=== PATIENT | female | born 1955 ===

== ENCOUNTER 2018-07-07 18:46 | Inpatient (IN) | payer BC ==
[2018-07-07 19:33] LABS: #Lymphocytes 1.3 thou/uL (1.20-3.40); #Monocytes 0.8 thou/uL (0.11-0.59); #Neutrophils 6.9 thou/uL (1.40-6.50); %Basophils 0.1 % (0.0-1.0); %Eosinophils 0.5 % (0.0-10.0); %Lymphocytes 14.3 % (21.0-51.0); %Monocytes 8.3 % (0.0-10.0); %Neutrophils 76.8 % (42.0-75.0); Hemoglobin 10.2 g/dL (12.0-16.0); Mean Corpuscular HGB CONC 31.9 g/dL (32.0-36.0); Mean Corpuscular Hemoglobin 34.3 pg (27.0-31.0); Mean Platelet Volume 8.6 fL (7.4-10.4); Platelet Count 171 thou/uL (130-400); Red Blood Cell (RBC) Count 2.96 mill/uL (4.20-5.40)
[2018-07-07 19:40] LABS: INR-International Normal Ratio 1.2; PTT 29.1 SEC (22.9-36.1)
[2018-07-07 19:47] LABS: ALT (SGPT) 19 U/L (8-55); AST (SGOT) 43 U/L (5-34); Albumin 3.4 g/dL (3.5-5.0); Alkaline Phosphatase 115 U/L (40-150); Anion Gap 14 mmol/L (10-20); BUN (Urea Nitrogen) 28 mg/dL (9.8-20.1); Bilirubin, Total 2.8 mg/dL (0.2-1.2); Calc. Creatinine Clearance 0 mL/min (70-130); Calcium 9.1 mg/dL (7.8-10.44); Carbon Dioxide 21 mmol/L (22-29); Chloride 105 mmol/L (98-107); Estimated GFR-MDRD 39; Globulin 3.4 g/dL (2.4-3.5); Glucose 95 mg/dL (70-105); Potassium 4.3 mmol/L (3.5-5.1); Protein, Total 6.8 g/dL (6.0-8.3); Sodium 136 mmol/L (136-145)
[2018-07-07 19:51] LABS: CKMB 2.1 ng/mL (0-6.6); Troponin I 0.205 ng/mL (< 0.028)
[2018-07-07 19:55] LABS: Bilirubin Small (Negative); Blood, Urine Large (Negative); Clarity CLOUDY (Clear); Glucose, Urine (Dipstick) Negative (Negative); Leukocyte Small (Negative); Nitrite Negative (Negative); Protein, Urine (Dipstick) 30 mg/dL (Neg-Trace); Specific Gravity, Urine 1.017 (1.002-1.036)
[2018-07-07 19:57] LABS: Bacteria/HPF None Seen HPF (None Seen); Hyaline Casts/LPF 0-3 HYALINE CAST LPF (0-3 Hyaline); Pathc Cast-AUWi Flag 0.43 (0-2.49); RBC/HPF 21-50 HPF (0-3); Squamous Epithelial None Seen HPF (0-3); WBC/HPF 0-3 HPF (0-3)
[2018-07-07] MEDS ORDERED: Lidocaine 1% w/Epinephrine 1:100K 20 ML VIAL ONE (20:04)
--- NOTE | 2018-07-07 20:06 | RAD ---
PORTABLE AP CHEST X-RAY: 07/07/18 HISTORY: Dyspnea. Liver mass and ascites. FINDINGS: The cardiac silhouette and pulmonary vasculature are within normal limits. There is elevation of the right hemidiaphragm. Lungs are otherwise clear. degenerative changes are seen in the spine. IMPRESSION: 1. No acute cardiopulmonary process. 2. Elevation right hemidiaphragm. POS: [facility]
[2018-07-07] MEDS ORDERED: Meropenem 2 GM in Sodium Chloride 0.9% 100 ML IVPB SCH (21:30)
[2018-07-07] MEDS ORDERED: Ondansetron PF 4 MG/2 ML Vial IVP PRN (23:25)
[2018-07-07] MEDS ORDERED: Acetaminophen 325 MG TAB PO PRN (23:25)
[2018-07-07] MEDS ORDERED: Diabetic Tussin 200 MG/10 ML UDCUP PO PRN (23:25)
[2018-07-07] MEDS ORDERED: Eucerin (Mineral Oil/Petrolatum,White) 30 gm Jar TOP PRN (23:25)
[2018-07-07] MEDS ORDERED: Calcium Carbonate 500 MG ChewTAB PO PRN (23:25)
[2018-07-07] MEDS ORDERED: Artificial Tears 18 DROP/0.9 ML EA EYE PRN (23:25)
[2018-07-07] MEDS ORDERED: Ondansetron ODT 4 MG TAB PO PRN (23:25)
[2018-07-07] MEDS ORDERED: hydrALAZINE 20 MG/ML VIAL SLOW IVP PRN (23:25)
[2018-07-07] MEDS ORDERED: Bisacodyl 10 MG SUPP PR PRN (23:25)
[2018-07-07] MEDS ORDERED: Cepastat Lozenges 1 LOZ PO PRN (23:25)
[2018-07-07] MEDS ORDERED: Loperamide HCl 2 MG CAP PO PRN (23:25)
[2018-07-07] MEDS ORDERED: Sodium Chloride 0.65% Nasal 44 ML BOT EA NARE PRN (23:25)
[2018-07-07] MEDS ORDERED: Bisacodyl 5 MG TAB PO PRN (23:25)
[2018-07-07] MEDS ORDERED: Loratadine 10 MG TAB PO PRN (23:25)
[2018-07-07] MEDS: HYDROcodone/Acetaminophen 5/325 mg Tablet PO PRN (23:41)
[2018-07-08] MEDS: cefTRIAXone\\ROCEPHIN 1 GM in Sodium Chloride 0.9% 100 ML IVPB SCH ×2 (00:55→23:31)
--- NOTE | 2018-07-08 02:13 | HP ---
DATE OF SERVICE: 07/07/2018 PRIMARY CARE PHYSICIAN: Dr. Marleen Charles. PRIMARY PIANO TUNER: Dr. Adrian Ramsey. REASON FOR ADMISSION: Abdominal distention. HISTORY OF PRESENT ILLNESS: A 62-year-old female who reports that she has a history of fatty liver. She does not know whether she has cirrhosis of liver or not. She went to see primary care physician today for abdominal distention, which is going on for last 2-3 weeks. The patient was initially thi nking that it was related with gas. She was trying all different kind of [id number] treatment for gas, which was not helping, but her abdominal distention was getting worse and that is why she sa w her primary care physician today. Her primary care physician advised to go to emergency room for e valuation. This patient also follows Dr. Ramsey as an outpatient basis. Patient reports that she saw Dr. Ramsey couple of times since May. She had investigation done on an outpatient basis, but p atient does not have any real detail clue about diagnosis other than fatty liver. The patient lives by herself, not drinking alcohol. She does not have any previous history of hepatitis. Patient also has chronic kidney failure and she is following Dr. Ryan as an outpatient basis. Patient reports that blood bank order control clerk was trying to do CT or MRI, but because of her kidney problem, they have not done so far. When this patient came to emergency room, she was having tense ascites, she was having abdominal pain . She was febrile with temperature 101. She had ultrasound-guided paracentesis in the emergency lonnie m and fluid was sent for culture and analysis. There was concern of spontaneous bacterial peritoniti s. The patient was given meropenem and subsequently she was admitted to medical floor. She denies a ny chest pain, but she was feeling shortness of breath because of abdominal distention. She denies a ny PND. She does report orthopnea because of abdominal distention. She does report increasing bilat eral lower extremity pitting edema. She does report weight gain. Patient did not have any fever at home. She denies any Tylenol or Motrin in excess. She does report urinary tract infection symptoms with increased frequency and dysuria. REVIEW OF SYSTEMS: The following complete review of systems was negative, unless otherwise mentioned in the HPI or below: Constitutional: Weight loss or gain, ability to conduct usual activities. Sk in: Rash, itching. Eyes: Double vision, pain. ENT/Mouth: Nose bleeding, neck stiffness, pain, te nderness. Cardiovascular: Palpitations, dyspnea on exertion, orthopnea. Respiratory: Shortness of breath, wheezing, cough, hemoptysis, fever or night sweats. Gastrointestinal: Poor appetite, abdom inal pain, heartburn, nausea, vomiting, constipation, or diarrhea. Genitourinary: Urgency, frequenc y, dysuria, nocturia. Musculoskeletal: Pain, swelling. Neurologic/Psychiatric: Anxiety, depressio n. Allergy/Immunologic: Skin rash, bleeding tendency. Please see my HPI for pertinent positive and negative. All other review of systems reviewed and negative except as mentioned in the HPI. ALLERGIES: AMLODIPINE, BACTRIM, SULFA DRUGS. CURRENT HOME MEDICATIONS: Allopurinol 200 mg p.o. daily, vitamin D3 1000 unit p.o. daily, losartan 1 00 mg p.o. daily, venlafaxine 100 mg p.o. daily. PAST MEDICAL HISTORY: Hypertension, chronic kidney disease stage 3, ? cirrhosis, fatty liver, gout, ? liver mass, ? adenoma of colon. PAST SURGICAL HISTORY: Cholecystectomy. The patient had a history of EGD and colonoscopy done by gas troenterologist. PAST PSYCHIATRIC HISTORY: Anxiety and depression. SOCIAL HISTORY: Patient is . No history of tobacco, alcohol, or illicit drug abuse. She yuan es at home with family. FAMILY HISTORY: The patient denies any family history of coronary artery disease, stroke, or cancer. EMERGENCY ROOM COURSE: Patient is given meropenem 2 grams. PHYSICAL EXAMINATION: VITAL SIGNS: Currently, blood pressure 122/95, pulse 92, respiratory rate 22, temperature 101, satur ation 95% on room air, weight 95.3 kilograms. GENERAL: Patient is currently alert, awake, in no obvious acute distress. HEAD: Normocephalic, atraumatic. EYES: Pupils round, reactive to light. Extraocular muscle intact. Icterus noted. ENT: Oropharynx within normal limits. Moist mucous membranes. No oral lesion, no pharyngeal erythe ma, no exudate. NECK: Supple. No JVD, no thyromegaly, no carotid bruit, no jugular venous distention. LUNGS: Clear to auscultation. Air entry reduced at base. No rales, no wheezing, no accessory muscl es of respiration in use. CARDIAC: S1, S2 regular. No murmur elicited, no gallop, no rub. ABDOMEN: Ascites noted. No peritoneal sign. Vague discomfort noted. No organomegaly, no mass, no Page's sign, no epigastric tenderness. BACK: Unremarkable. No CVA tenderness. EXTREMITIES: Upper extremity: Passive movement of all joints are normal. Lower extremities: Bilat eral lower extremity pitting edema noted. Good distal pulsation. SKIN: No skin rash. HEMATOLOGICAL: No lymphadenopathy. NEUROLOGIC: No asterixis. Normal mental status. No focal neurological deficit noted. SIGNIFICANT LABORATORY AND DIAGNOSTIC DATA: Now EKG showing normal sinus rhythm, low voltage QRS com plex, no acute ischemic changes. Chest x-ray: Elevated right hemidiaphragm, no acute process. CBC: WBC 9.0, hemoglobin 10.2, MCV 107, and platelet 171. INR 1.2. BMP: Sodium 136, potassium 4.3, ch loride 105, BUN 28, creatinine 1.37, glucose 95. Lactic acid 1.9, calcium 9.1. LFT: Bilirubin 2.8, AST 43, ALT 19, alkaline phosphatase was 115, albumin 3.4, CK-MB 2.1, troponin 0.205. BNP 96.5. Ur inalysis: Blood large, leukocyte esterase small. ASSESSMENT AND PLAN: 1. New onset ascites. Patient has tense ascites on admission. She had paracentesis done and 3 lite rs of fluid removed in the emergency room. Fluid was sent for analysis. At this point, we will chec k fluid cytology, Gram stain and culture, protein, albumin, LDH and protein will be checked. The pat ient also has fever, so concerning for spontaneous bacterial peritonitis. We will start empirically Rocephin 1 gram q.24 hours and Levaquin 500 mg IV daily. Etiology of rapidly worsening ascites is un clear. She will need more investigation including ultrasound. Gastroenterology will be consulted an d further investigation will defer to them. This patient is following Dr. Ramsey as an outpatient bas is and I am suspecting that patient might have done all investigations done on an outpatient basis. Further investigation will defer to blood bank order control clerk. 2. ? liver mass and cirrhosis. If the patient does have diagnosis of cirrhosis, then suspecting non alcoholic steatohepatitis related cirrhosis. We will check alpha fetoprotein level. We will start L asix 20 mg IV b.i.d. and Aldactone 25 mg p.o. b.i.d. It is unclear whether this patient has any vari becki, but patient does have evidence of portal hypertension and that is why we will start Inderal, Cor robert 20 mg p.o. daily. We will check hepatitis profile and obtain right upper quadrant ultrasound fo r further evaluation. 3. Gout. We will continue allopurinol 200 mg p.o. daily. 4. Anxiety and depression. We will continue venlafaxine 100 mg p.o. daily. 5. Hypertension. We will continue losartan 100 mg p.o. daily. 6. Elevated troponin. We will repeat cardiac enzymes tomorrow. We are suspecting from demand ische jayjay. Patient does not have any chest pain, nonspecific EKG changes. 7. Microcytic anemia. We will start folic acid and vitamin B12 therapy. 8. Urinary tract infection. Patient has urinary tract infection symptoms. Patient is already on Ro cephin and Levaquin therapy. We will send urine culture. 9. Elevated right hemidiaphragm, chronic. 10. Deep venous thrombosis prophylaxis. Lovenox 40 mg subcu daily. 11. Gastrointestinal prophylaxis. Pepcid 20 mg p.o. daily. CODE STATUS: The patient is FULL CODE. Patient's is surrogate decision maker. Disposition plan based on clinical course. We will check ammonia level and routine labs again tomorr ow. Plan of care extensively discussed with the patient and her at bedside.
[2018-07-08 05:28] LABS: #Eosinphils 0.1 thou/uL (0.0-0.7); #Lymphocytes 1.6 thou/uL (1.20-3.40); #Monocytes 0.8 thou/uL (0.11-0.59); #Neutrophils 3.4 thou/uL (1.40-6.50); %Basophils 0.6 % (0.0-1.0); %Eosinophils 2.1 % (0.0-10.0); %Lymphocytes 26.4 % (21.0-51.0); %Neutrophils 56.9 % (42.0-75.0); Hemoglobin 8.5 g/dL (12.0-16.0); Mean Corpuscular HGB CONC 31.5 g/dL (32.0-36.0); Mean Corpuscular Hemoglobin 33.8 pg (27.0-31.0); Mean Platelet Volume 8.4 fL (7.4-10.4); Platelet Count 120 thou/uL (130-400); RBC Distribution Width 14.1 % (11.5-14.5); Red Blood Cell (RBC) Count 2.51 mill/uL (4.20-5.40)
[2018-07-08] MEDS: Furosemide 20 MG/2 ML VIAL SLOW IVP SCH ×2 (05:36→13:55)
[2018-07-08 05:53] LABS: ALT (SGPT) 14 U/L (8-55); AST (SGOT) 30 U/L (5-34); Albumin 2.8 g/dL (3.5-5.0); Alkaline Phosphatase 92 U/L (40-150); Anion Gap 10 mmol/L (10-20); BUN (Urea Nitrogen) 28 mg/dL (9.8-20.1); Bilirubin, Total 2.2 mg/dL (0.2-1.2); Calc. Creatinine Clearance 0 mL/min (70-130); Calcium 8.5 mg/dL (7.8-10.44); Carbon Dioxide 25 mmol/L (22-29); Chloride 105 mmol/L (98-107); Estimated GFR-MDRD 43; Globulin 2.7 g/dL (2.4-3.5); Glucose 92 mg/dL (70-105); Potassium 3.7 mmol/L (3.5-5.1); Protein, Total 5.5 g/dL (6.0-8.3); Sodium 136 mmol/L (136-145)
[2018-07-08 05:55] LABS: CKMB 1.7 ng/mL (0-6.6); Troponin I 0.177 ng/mL (< 0.028)
[2018-07-08 06:24] LABS: HBCM Index 0.07 S/CO (0-0.79); Hep A IgM AB Non-Reactive (NonReactive); Hep B Surf Ag Non-Reactive S/CO (NonReactive); Hep C IgG Ab Non-Reactive (NonReactive); Hep C Index 0.12 S/CO (0-0.79); Hepatitis B Core IGM Abs Non-Reactive (NonReactive)
--- NOTE | 2018-07-08 08:02 | ULT ---
RIGHT UPPER QUADRANT ULTRASOUND: INDICATION: History of ascites. COMPARISON: None. FINDINGS: There is severe cirrhotic morphology of the liver. There is a large solid mass involving the right h epatic lobe measuring 9.4 x 6.6 cm suspicious for a pelvic density. Appropriate hepatopetal flow is seen within the hepatic artery. There is hepatofugal flow within the vein. Edematous changes are se en within the pancreas. The gallbladder is surgically absent. The common bile duct is enlarged gigi uring 1.2 cm. The right kidney measures 10.3 x 4.5 x 4.1 cm without evidence of focal renal lesion o r hydronephrosis. There is moderate ascites. There is a moderate-sized right pleural effusion. IMPRESSION: 1. Cirrhotic morphology of the liver with hepatofugal flow within the portal vein. 2. Moderate ascites. 3. Large mass within the right hepatic lobe suspicious for hepatocellular carcinoma. 4. Moderate right pleural effusion. 5. Cholecystectomy. POS: [facility]
[2018-07-08] MEDS ORDERED: Enoxaparin Sodium 40 MG/0.4 ML SYRINGE SC SCH (09:00)
[2018-07-08] MEDS ORDERED: Nadolol 40 MG TAB PO SCH (09:00)
[2018-07-08] MEDS: Allopurinol 100 MG TAB PO SCH ×2 (09:02→09:03)
[2018-07-08] MEDS: Cyanocobalamin (Vitamin B-12) 1,000 MCG TAB PO SCH (09:04)
[2018-07-08] MEDS: Losartan 25 MG TAB PO SCH (09:04)
[2018-07-08] MEDS: Folic Acid 1 MG TAB PO SCH (09:04)
[2018-07-08] MEDS: Spironolactone 25 MG TAB PO SCH ×2 (09:04→18:10)
[2018-07-08] MEDS: Saccharomyces boulardii 250 MG CAP PO SCH (09:04)
[2018-07-08] MEDS: Famotidine 20 MG TAB PO SCH (09:04)
[2018-07-08] MEDS: Venlafaxine HCl 25 MG TAB PO SCH (09:24)
[2018-07-08] MEDS: Heparin 5,000 UNITS/ML VIAL SC SCH ×2 (09:24→19:49)
[2018-07-08] MEDS: HYDROcodone/Acetaminophen 5/325 mg Tablet PO PRN (09:31)
--- NOTE | 2018-07-08 15:04 | PDOC.PN ---
- Subjective Encounter Start Date: 07/08/18 Encounter Start Time: 11:15 Subjective: pt up in bed has some pain to his abdomen - Objective Resuscitation Status: Resuscitation Status FULL:Full Resuscitation Vital Signs & Weight: Vital Signs (12 hours) Temp Pulse Resp BP BP Pulse Ox 07/08/18 11:31 98 F 70 19 133/79 91 L 07/08/18 07:26 98.1 F 88 20 132/76 94 L 07/08/18 04:27 97.9 F 87 18 120/72 93 L Weight Admit Weight 210 lb Weight 210 lb I&O: 07/07/18 07/08/18 07/09/18 06:59 06:59 06:59 Output Total 200 Balance -200 Result Diagrams: 07/08/18 04:30 07/08/18 04:30 Additional Labs: Accuchecks 07/08/18 11:35 POC Glucose 121 H Phys Exam - Physical Examination Neck: no nodes, no JVD, supple, full ROM Respiratory: no wheezing, no rales, no rhonchi, wheezing present, clear to auscultation bilateral Cardiovascular: RRR, no significant murmur, no rub, gallop, irregular Gastrointestinal: soft, positive bowel sounds mild distention Dx/Plan (1) Cirrhosis of liver with ascites Code(s): K74.60 - UNSPECIFIED CIRRHOSIS OF LIVER; R18.8 - OTHER ASCITES Status : Acute (2) SBP (spontaneous bacterial peritonitis) Code(s): K65.2 - SPONTANEOUS BACTERIAL PERITONITIS Status: Acute (3) Anemia Code(s): D64.9 - ANEMIA, UNSPECIFIED Status: Acute - Plan pt up in bed no complains -: will continue abx for now -: hepatitis panel negative -: mild elevated smooth muscle antibody * . Review of Systems - Review of Systems Respiratory: negative: Cough, Dry, Shortness of Breath, Hemoptysis, SOB with Excertion, Pleuritic Pain, Sputum, Wheezing Cardiovascular: negative: chest pain, palpitations, orthopnea, paroxysmal nocturnal dyspnea, edema, light headedness, other Gastrointestinal: negative: Nausea, Vomiting, Abdominal Pain, Diarrhea, Constipation, Melena, Hematochezia, Other Genitourinary: negative: Dysuria, Frequency, Incontinence, Hematuria, Retention , Other - Medications/Allergies Allergies/Adverse Reactions: Allergies Allergy/AdvReac Type Severity Reaction Status Date / Time amlodipine Allergy Severe Verified 07/07/18 23:49 Sulfa (Sulfonamide Allergy Hives Verified 07/07/18 23:49 Antibiotics) sulfamethoxazole Allergy Unverified 07/07/18 23:49 [From Bactrim] trimethoprim [From Bactrim] Allergy Unverified 07/07/18 23:49 Medications: Current Medications Acetaminophen (Tylenol) 650 mg PO Q4H PRN PRN Reason: Headache/Fever/Mild Pain (1-3) Hydrocodone Bitart/Acetaminophen ([place] 5/325) 1 tab PO Q4H PRN PRN Reason: Moderate Pain (4-6) Last Admin: 07/08/18 09:31 Dose: 1 tab Albuterol/Ipratropium (Duoneb) 3 ml NEB Q6H PRN PRN Reason: SOB &/or Wheezing Allopurinol (Zyloprim) 200 mg PO DAILY [facility] Last Admin: 07/08/18 09:03 Dose: 200 mg Artificial Tears (Tears Naturale) 2 drop EA EYE PRN PRN PRN Reason: Dry Eyes Bisacodyl (Dulcolax) 10 mg PO DAILYPRN PRN PRN Reason: Constipation Bisacodyl (Dulcolax) 10 mg OK DAILYPRN PRN PRN Reason: Constipation Calcium Carbonate (Tums) 1,000 mg PO Q4H PRN PRN Reason: Heartburn or Indigestion Cholecalciferol (Vitamin D3) 1,000 units PO DAILY [facility] Last Admin: 07/08/18 09:04 Dose: 1,000 units Cyanocobalamin (Vitamin B-12) 1,000 mcg PO DAILY [facility] Last Admin: 07/08/18 09:04 Dose: 1,000 mcg Famotidine (Pepcid) 20 mg PO DAILY [facility] Last Admin: 07/08/18 09:04 Dose: 20 mg Folic Acid (Folvite) 1 mg PO DAILY [facility] Last Admin: 07/08/18 09:04 Dose: 1 mg Furosemide (Lasix) 20 mg SLOW IVP 0600,1400 [facility] Last Admin: 07/08/18 13:55 Dose: 20 mg Guaifenesin (Robitussin Sf) 200 mg PO Q4H PRN PRN Reason: Cough Heparin Sodium (Porcine) (Heparin) 5,000 units SC BID [facility] Last Admin: 07/08/18 09:24 Dose: 5,000 units Hydralazine HCl (Apresoline) 10 mg SLOW IVP Q4H PRN PRN Reason: SBP > 180 and HR < 70 Ceftriaxone Sodium 1 gm/ (Sodium Chloride) 100 mls @ 200 mls/hr IVPB Q24HR [facility] Last Admin: 07/08/18 00:55 Dose: 100 mls Levofloxacin 500 mg/ Device 100 mls @ 100 mls/hr IVPB Q24HR@0400 [facility] Lactulose (Lactulose) 20 gm PO DAILY [facility] Last Admin: 07/08/18 09:02 Dose: 20 gm Loperamide HCl (Imodium) 2 mg PO PRN PRN PRN Reason: Diarrhea/Loose Stools Loratadine (Claritin) 10 mg PO DAILYPRN PRN PRN Reason: Sinus Symptoms Losartan Potassium (Cozaar) 100 mg PO DAILY [facility] Last Admin: 07/08/18 09:04 Dose: 100 mg Mineral Oil/White Petrolatum (Eucerin Cream) 0 gm TOP BIDPRN PRN PRN Reason: Dry Skin Nadolol (Corgard) 20 mg PO DAILY [facility] Last Admin: 07/08/18 09:02 Dose: 20 mg Ondansetron HCl (Zofran Odt) 4 mg PO Q6H PRN PRN Reason: Nausea/Vomiting Ondansetron HCl (Zofran) 4 mg IVP Q6H PRN PRN Reason: Nausea/Vomiting Pneumococcal 13-Valent Conj Vacc (Prevnar) 0.5 ml IM .ONCE ONE Stop: 07/09/18 09:01 Saccharomyces Boulardii (Florastor) 250 mg PO DAILY [facility] Last Admin: 07/08/18 09:04 Dose: 250 mg Sodium Chloride ([place] Nasal [place] 0.65%) 0 ml EA NARE QIDPRN PRN PRN Reason: Nasal Congestion Spironolactone (Aldactone) 25 mg PO BID-[facility] Last Admin: 07/08/18 09:04 Dose: 25 mg Throat Lozenges (Cepastat Lozenges) 1 jennifer PO Q2H PRN PRN Reason: Sore Throat Venlafaxine HCl (Effexor) 100 mg PO DAILY [facility] Last Admin: 07/08/18 09:24 Dose: 100 mg
--- NOTE | 2018-07-08 20:05 | CON ---
DATE OF CONSULTATION: 07/08/2018 GASTROENTEROLOGY CONSULTATION CHIEF COMPLAINT: Abdominal swelling and pain. HISTORY OF PRESENT ILLNESS: Ms. Salazar is a 62-year-old woman who saw Dr. Charles in clinic yesterday. She has had progressive abdominal distention and pressure type diffuse abdominal pain and this was causing shortness of breath for her. She was sent onto the emergency room where a paracentesis was p erformed. Three liters were removed and she now feels much better without any abdominal pain or shor tness of breath. She has no nausea or vomiting. No diarrhea or constipation. No blood in the stool . She originally presented to [facility] Clinic on 05/15/2018 and reported a history of cirrhosis of the yuan er diagnosed years ago. She was told this was due to fatty liver disease. She had an ultrasound per formed around April for evaluation of elevated creatinine which incidentally showed a liver mass. S he was then referred to GI Clinic for further evaluation. Lab work was sent to evaluate further caus es of cirrhosis. Her iron saturation was not elevated. Her alpha 1 antitrypsin level was not low. Her smooth muscle antibody was mildly elevated at 24. Mitochondrial antibody was normal. Tissue tra nsglutaminase antibody was negative. Her hepatitis C, B and A were all negative. She did not show i mmunity to A or B. MRI of the liver with plan to evaluate the liver mass. However, her creatinine w as noted to be elevated as high as 2.2 and therefore, the MRI was held. Ultimately, she was referred to a transplant center in [place] with Dr. Davis at [facility] call her to schedule an appointment which she states she will call them back to do. I per formed EGD and colonoscopy on 05/20/2018. She had a couple of small adenomas removed from her colon. The colonoscopy was otherwise unremarkable. Upper endoscopy was negative for esophageal varices an d was normal overall. PAST MEDICAL HISTORY: Cirrhosis of the liver, reportedly due to nonalcoholic steatohepatitis. Lab w orkup for other causes of liver disease has been negative as stated above. She denies alcohol use. PAST SURGICAL HISTORY: Cholecystectomy and hemorrhoidectomy. FAMILY HISTORY: Negative for GI malignancy or liver disease. SOCIAL HISTORY: No alcohol, tobacco or drugs. She is a former smoker. She is , has three ch ildren. ALLERGIES: SULFA DRUGS. MEDICATIONS PRIOR TO ADMISSION: Venlafaxine, losartan, allopurinol, vitamin D, and she had been on h ydrochlorothiazide for a period of time, but this was stopped after her creatinine was noted to be el evated. She was then placed on amlodipine, but she developed significant peripheral edema and that w as also stopped. REVIEW OF SYSTEMS: Negative x10 systems reviewed except as stated in history of present illness. PHYSICAL EXAMINATION: VITAL SIGNS: Temperature 98.4, pulse 70, blood pressure 138/92. GENERAL: She is in no acute distress. She is alert and oriented x3. HEENT: Eyes have no scleral icterus. Oropharynx is clear without lesions, cervical or supraclavicul ar lymphadenopathy. No asterixis on neurological exam. LUNGS: Clear to auscultation bilaterally. HEART: Regular rate and rhythm without murmur. ABDOMEN: Distended, but soft and nontender at this time. She did have paracentesis. Three liters r emoved yesterday. EXTREMITIES: 2+ pitting lower extremity edema. LABORATORY DATA: Creatinine 1.27, bilirubin 2.2, AST 30, ALT 14, alkaline phosphatase 92, albumin 2. 8. INR 1.2. White blood cell count 6.0, hemoglobin 8.5, platelets 120, MCV 107, bilirubin 2.2. Alp whittaker fetoprotein on 05/16/2018 was 25.4. This was drawn again yesterday and is pending. IMAGING DATA: She had ultrasound of the abdomen early this morning that shows a cirrhotic morphology to the liver, moderate ascites was noted. A 9.4 x 6.6 cm mass was seen in the right hepatic lobe co ncerning for hepatoma. The common bile duct was 1.2 cm, status post cholecystectomy. IMPRESSION: 1. Cirrhosis of the liver, decompensated with bilirubin of 2.2, albumin of 2.8, creatinine 1.27, INR 1.2, this is apparently due to past fatty liver disease. She has negative serology for viral hepati tis and should be vaccinated for hepatitis A and hepatitis B. 2. Liver mass concerning for hepatocellular carcinoma. Alpha fetoprotein was only mildly elevated a t 25. This has been repeated yesterday and we will follow the trend. If her kidney function remains adequate tomorrow, then we will request an MRI with liver mass protocol including contrast for tomor row. 3. Ascites. She has had worsening ascites over the last month. She had paracentesis last night and did add cell count with differential to the fluid study labs which is now pending. In the meantime, she is being covered with ceftriaxone and levofloxacin. 4. She has no hepatic encephalopathy. 5. Endoscopy showed no varices. I will stop the nadolol at this time. RECOMMENDATIONS: 1. Ceftriaxone. 2. Await cell count from the ascitic fluid. 3. If her kidney function is adequate tomorrow, then obtain MRI with contrast with liver mass protoc ol. 4. Referral to liver transplant center has been initiated. This will be done as an outpatient after she is optimized with the diuretic regimen and paracentesis as she tolerates now. If SBP is confirm ed, then she will be treated with 5 days of ceftriaxone and IV albumin can be given as well. 5. Chronic renal insufficiency. Her creatinine is better now than it was a month ago.
[2018-07-08 23:20] LABS: BF Color Yellow; Body Fluid Source Ascites Body Fluid; Clarity Hazy (Clear); RBC Background Count 0.008; Tube # EDTA; WBC Background Count 0.03
[2018-07-08 23:21] LABS: BF RBC Count - Manual 984 /cumm; BF WBC/Nonhematics Ct. - Manua 55 /cumm
[2018-07-09 00:47] LABS: BF Segmented Neutrophils 3 %; Cell Count Non Hematic 38 %; Lymphocytes 59 %
[2018-07-09 05:27] LABS: Cardiac Risk 11.8 (Less than 4.5)
[2018-07-09] MEDS: Furosemide 20 MG/2 ML VIAL SLOW IVP SCH ×2 (06:00→15:28)
[2018-07-09] MEDS ORDERED: Prevnar 13-Val Conj/PF 0.5 ML SYRINGE IM ONE (09:00)
[2018-07-09] MEDS: Venlafaxine HCl 25 MG TAB PO SCH (09:32)
[2018-07-09] MEDS: Famotidine 20 MG TAB PO SCH (09:33)
[2018-07-09] MEDS: Allopurinol 100 MG TAB PO SCH (09:33)
[2018-07-09] MEDS: Losartan 25 MG TAB PO SCH (09:33)
[2018-07-09] MEDS: Saccharomyces boulardii 250 MG CAP PO SCH (09:34)
[2018-07-09] MEDS: Heparin 5,000 UNITS/ML VIAL SC SCH ×2 (09:34→20:21)
[2018-07-09] MEDS: Folic Acid 1 MG TAB PO SCH (09:34)
[2018-07-09] MEDS: Cyanocobalamin (Vitamin B-12) 1,000 MCG TAB PO SCH (09:34)
[2018-07-09] MEDS: Spironolactone 25 MG TAB PO SCH ×2 (09:34→15:28)
--- NOTE | 2018-07-09 10:36 | CT ---
PRELIMINARY REPORT/[facility]/EMERGENTY AFTER-HOURS PROCEDURE CT Head Without Intravenous Contrast CLINICAL HISTORY: 62 years old, female; Injury or trauma; Fall; Initial encounter; Concussion / head injury TECHNIQUE: Axial computed tomography images of the head/brain without intravenous contrast. COMPARISON: No relevant prior studies available. FINDINGS: No definite acute skull fracture. Included paranasal sinuses are essentially clear. No acute intracranial hemorrhage or midline shift. Ventricle size is normal for age. No definite acute infarct by CT. In the right lateral aspect of the posterior cranial fossa, there is an area of CSF density measuring 30 x 16 mm. I suspect that this is an arachnoid cyst, or epidermoid. This is obviously a chronic appearance, and likely an incidental finding. Further evaluation with MRI might be useful, if felt clinically indicated. IMPRESSION: No acute intracranial bleed or midline shift. Other findings discussed above. Thank you for allowing us to participate in the care of your patient. Dictated and Authenticated by: Victor Manuel Nielsen MD 07/09/2018 12:46 AM Central Time ([place] & [place]) FINAL REPORT HEAD CT WITHOUT CONTRAST: Date: 07/09/18 COMPARISON: None. HISTORY: Fall, trauma, pain, injury. FINDINGS/IMPRESSION: This report is in agreement with the preliminary report given by [facility]. Imaged paranasal sinuses/mastoid air cells appear well aerated. There is a focal area of scalp swelli ng posteriorly near the vertex. There is a 3.0 x 1.6 cm area of CSF density in the right lateral aspect of the posterior fossa which may signify epidermoid or arachnoid cyst. Recommend follow-up MRI. No intracranial hemorrhage or disp laced calvarial fracture. POS: [facility]
--- NOTE | 2018-07-09 16:57 | MRI ---
MRI ABDOMEN WITH AND WITHOUT CONTRAST: Date: 07/09/18 HISTORY: Abnormality seen on recent ultrasound. COMPARISON: Ultrasound from prior day. FINDINGS: Multiplanar, multisequence MRI of the abdomen performed prior to and after the intravenous administra tion of contrast. The arterial phase of contrast was delayed; this is actually a portal venous phase as there is more contrast in the portal veins than there are the hepatic arteries, although there is a partially hyperenhancing mass within the right lobe of the liver which is very large, measuring 7.5 x 8.2 x 11.0 cm, and involves hepatic segments 5, 6, 7, and 8. The mass extends to the right portal vein. This is highly suggestive of hepatocellular carcinoma. There is extensive hepatic cirrhosis. Extensive esophageal and gastric varices. Spleen is enlarged. Large volume ascites. Large right effusion. IMPRESSION: Large right hepatic lobe mass involving segments 5, 6, 7, and 8, highly suspicious for hepatocellular carcinoma with portal venous invasion. Evaluation with arterial phase hyperenhancement, the main cri teria for LI-RADS, is limited as the first phase is a portal venous and not an arterial phase. 2. Splenomegaly. 3. Portal hypertension with gastric and esophageal varices. 4. Large volume ascites. 5. Large right effusion. POS: [facility]
[2018-07-09] MEDS: Albumin 25% 25 GM/100 ML BOT IVPB SCH ×2 (18:23→23:27)
--- NOTE | 2018-07-09 19:33 | PRG ---
DATE OF SERVICE: 07/09/2018 SUBJECTIVE: Ms. Salazar is without complaints. MRI of the abdomen today, the results of that are pending. OBJECTIVE: VITALS: Temperature 98.7, pulse 78, blood pressure 155/88, weight is 210 today. In's and out's, not recorded. GENERAL: The patient is alert and oriented to person, place, and time. She is in no distress. ABDOMEN: Slightly protuberant. EXTREMITIES: Reveal no edema. LABORATORY STUDIES: Creatinine was 1.23 today down from 1.27 yesterday and 1.37 on . ASSESSMENT: 1. Liver mass being worked up. 2. 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 3. Presentation with a creatinine above 2, likely prerenal azotemia. 4. Abdominal paracentesis showed no evidence of spontaneous bacterial peritonitis with white count of 55 and 3% segs. RECOMMENDATIONS: 1. Continue diuretics. 2. Check metabolic profile tomorrow. 3. Await MRI. 4. 2 g sodium diet. 5. Daily weights. 6. If the patient's renal function remains stable, she will be able to go home tomorrow outpatient w ith diuretics and close clinic followup. Dr. Ramsey will return to evaluate the patient's MRI and lab s tomorrow. We would recommend daily weights.
--- NOTE | 2018-07-09 23:46 | CON ---
DATE OF CONSULTATION: 07/09/2018 HISTORY OF PRESENT ILLNESS: Ms. Salazar is a 62-year-old [place]izen [place] female who was admitted for a bdominal fullness. She was found to have significant ascites. She underwent a paracentesis with sev eral liters of fluid removed. Her abdominal fullness was much improved. We are now being consulted for her acute kidney injury on top of a possible chronic renal failure. REVIEW OF SYSTEMS: Positive for abdominal fullness. No chest pain or shortness of breath, no nausea , no vomiting, no diarrhea, no constipation, no productive cough, no fever or chills. Energy level i s fair. Appetite is fair. No headache, no diplopia, no sore throat, no joint pains. No hematochezi a, no melena, no hematemesis. CURRENT MEDICATIONS: Includes the following; Tylenol 650 mg q.4 p.r.n., DuoNeb q.6 p.r.n., Zyloprim 200 mg once a day, Dulcolax p.r.n., vitamin D3 1000 international units every day, vitamin B12 1000 m cg every day, Folvite 1 mg once a day, furosemide 20 mg IV q.12, hydralazine 10 mg IV q.4 p.r.n., Imo dium p.r.n., losartan 100 mg p.o. daily, Zofran 4 mg IV q.6, spironolactone 25 mg p.o. b.i.d., status post ceftriaxone, status post Levaquin. PAST MEDICAL HISTORY: 1. History of cirrhosis/fatty liver. 2. Recent diagnosis of ascites. 3. Hypertension. 4. Gout. 5. Recent diagnosis of liver mass. 6. Adenomatous polyp of the colon. PAST SURGICAL HISTORY: 1. Status post open cholecystectomy. 2. Status post upper and lower GI endoscopy, recently status post paracentesis. SOCIAL HISTORY: Patient lives in [place], , 3 children. Originally from the state [facility]. 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 S moked for 25 years, half a pack a day. No alcohol. Education high school. ALLERGIES: 1. SULFA. 2. AMLODIPINE adverse reaction - leg swelling. TRAUMA: None. IMMUNIZATIONS: Not up to date. HOSPITALIZATIONS: Please see past medical history. FAMILY HISTORY: No family history of ESRD. PHYSICAL EXAMINATION: VITAL SIGNS: Blood pressure is 146/100, heart rate 76, respiratory rate 18, temperature 98.1, pulse ox 94%. GENERAL: Awake, alert, comfortable, not in distress. SKIN: Adequate turgor. HEENT: She has slightly pale conjunctivae, anicteric sclerae. NECK: No neck mass, no carotid bruits, no JVD. CHEST: No deformities. LUNGS: Clear breath sounds, no wheezing, no crackles. HEART: Normal sinus rhythm. No murmurs, no gallops, no rubs. ABDOMEN: Globular, soft, nontender, no masses. Positive for ascites. GROIN: No inguinal lymphadenopathy. EXTREMITIES: No edema, no deformities. NEUROLOGIC: Awake, oriented to 3 spheres. Moving all extremities. No tremors, no asterixis, no iris linda. LABORATORY DATA: Laboratories of 07/08/2018; white count 6, hemoglobin 8.5. On 07/09/2018; glucose 111, creatinine 1.23, GFR 45 mL per minute. On 07/08/2018, BUN 28, creatinine 1.27, GFR 43 mL per minute, potassium 3.7. On 07/07/2018, BUN 28, creatinine 1.37. On 05/16/2018, creatinine 2.22. On 04/03/2018, creatinine 1.81. IMAGING DATA: MRI of the abdomen is pending. CT scan of the brain, no acute intracranial abnormalit y. Ultrasound of the abdomen 07/08/2018 shows moderate right pleural effusion, moderate ascites, cirrhot ic morphology of the liver. There is a large mass within the right hepatic lobe suspicious for hepat ocellular carcinoma. On 07/07/2018, chest x-ray, elevated right hemidiaphragm, no acute cardiopulmonary process. Report of the abdominal ultrasound did not show or noted any significant renal mass. ASSESSMENT AND PLAN: 1. Acute kidney injury on top of her chronic renal failure, the possibility of a superimposed preren al azotemia remains. Please note she is on losartan and diuretic regimen. My bias with a history of cirrhosis is to start her on an albumin infusion at 25 grams IV q.6 hours for the next 3 days. Joyce wang note her albumin back in 05/16/2018 was 3.4. Alpha 1 antitrypsin is a little elevated to 66. Fur thermore, her urinalysis shows a protein of 30 with RBCs 21-50 with WBCs 0-3. Report of the abdomina l ultrasound did not show or noted any significant renal mass. As previously mentioned, continue wit h the salt poor albumin. Will adjust losartan as needed depending on the renal response with albumin infusion. In the near future, we could decreased albumin. 2. Hypertension. Continue current blood pressure medication for the moment. She does not tolerate amlodipine due to leg swelling. 3. Cirrhosis/ascites, GI following. Awaiting results of the MRI of the abdomen. The concern is whe ther she may have underlying hepatocellular carcinoma. 4. Anemia p.r.n. blood transfusion. Agree with current management.
[2018-07-10] MEDS: Furosemide 20 MG/2 ML VIAL SLOW IVP SCH ×2 (05:40→14:01)
[2018-07-10] MEDS: Albumin 25% 25 GM/100 ML BOT IVPB SCH ×3 (05:41→17:39)
[2018-07-10] MEDS: Saccharomyces boulardii 250 MG CAP PO SCH (07:55)
[2018-07-10] MEDS: Folic Acid 1 MG TAB PO SCH (07:56)
[2018-07-10] MEDS: Cyanocobalamin (Vitamin B-12) 1,000 MCG TAB PO SCH (07:56)
[2018-07-10] MEDS: Allopurinol 100 MG TAB PO SCH (07:56)
[2018-07-10] MEDS: Famotidine 20 MG TAB PO SCH (07:56)
[2018-07-10] MEDS: Spironolactone 25 MG TAB PO SCH ×2 (07:56→17:39)
[2018-07-10] MEDS: Heparin 5,000 UNITS/ML VIAL SC SCH ×2 (07:57→19:53)
[2018-07-10] MEDS: Venlafaxine HCl 25 MG TAB PO SCH (08:04)
[2018-07-10 08:53] LABS: #Basophils 0.1 thou/uL (0.0-0.2); #Eosinphils 0.1 thou/uL (0.0-0.7); #Lymphocytes 1.6 thou/uL (1.20-3.40); #Monocytes 0.7 thou/uL (0.11-0.59); #Neutrophils 3.8 thou/uL (1.40-6.50); %Basophils 1.1 % (0.0-1.0); %Eosinophils 2.3 % (0.0-10.0); %Lymphocytes 25.6 % (21.0-51.0); %Monocytes 10.8 % (0.0-10.0); %Neutrophils 60.3 % (42.0-75.0); Hemoglobin 9.5 g/dL (12.0-16.0); Mean Corpuscular HGB CONC 31.9 g/dL (32.0-36.0); Mean Corpuscular Hemoglobin 34.7 pg (27.0-31.0); Mean Platelet Volume 10.1 fL (7.4-10.4); Platelet Count 171 thou/uL (130-400); RBC Distribution Width 14.7 % (11.5-14.5); Red Blood Cell (RBC) Count 2.72 mill/uL (4.20-5.40); White Blood Cell (WBC) Count 6.2 thou/uL (4.8-10.8)
[2018-07-10] MEDS: Losartan 25 MG TAB PO SCH (11:46)
[2018-07-10 12:26] LABS: ALT (SGPT) 14 U/L (8-55); AST (SGOT) 29 U/L (5-34); Albumin 3.1 g/dL (3.5-5.0); Alkaline Phosphatase 97 U/L (40-150); Anion Gap 14 mmol/L (10-20); BUN (Urea Nitrogen) 27 mg/dL (9.8-20.1); Bilirubin, Total 1.5 mg/dL (0.2-1.2); Calc. Creatinine Clearance 62 mL/min (70-130); Calcium 8.6 mg/dL (7.8-10.44); Carbon Dioxide 24 mmol/L (22-29); Chloride 105 mmol/L (98-107); Estimated GFR-MDRD 40; Globulin 2.8 g/dL (2.4-3.5); Glucose 97 mg/dL (70-105); Potassium 3.5 mmol/L (3.5-5.1); Protein, Total 5.9 g/dL (6.0-8.3); Sodium 139 mmol/L (136-145)
[2018-07-10] MEDS ORDERED: Lidocaine 1% PF 5 ML VIAL ONE (14:15)
[2018-07-10] MEDS ORDERED: Sodium Bicarbonate 2.5 MEQ/5 ML VIAL ONE (14:16)
[2018-07-10 14:26] VITALS: BMI 34.9
--- NOTE | 2018-07-10 16:58 | PDOC.PN ---
- Subjective Encounter Start Date: 07/09/18 Encounter Start Time: 11:15 Subjective: pt up in bed no complains - Objective Resuscitation Status: Resuscitation Status FULL:Full Resuscitation Vital Signs & Weight: Vital Signs (12 hours) Temp Pulse Resp BP Pulse Ox 07/10/18 15:28 98.2 F 83 18 154/77 H 96 07/10/18 11:11 97.9 F 84 16 127/83 96 07/10/18 09:44 148/84 H 07/10/18 08:00 98.0 F 85 16 134/87 96 07/10/18 04:59 97.8 F 77 16 149/95 H 92 L Weight Admit Weight 210 lb Weight 194 lb I&O: 07/09/18 07/10/18 07/11/18 06:59 06:59 06:59 Intake Total 1100 Balance 1100 Result Diagrams: 07/10/18 05:11 07/10/18 11:33 Additional Labs: Accuchecks 07/10/18 07/10/18 07/09/18 11:29 04:57 19:53 POC Glucose 95 77 111 H Phys Exam - Physical Examination Neck: no nodes, no JVD, supple, full ROM Respiratory: no wheezing, no rales, no rhonchi, wheezing present, clear to auscultation bilateral Cardiovascular: RRR, no significant murmur, no rub, gallop, irregular Gastrointestinal: soft, positive bowel sounds mild distention Dx/Plan (1) Cirrhosis of liver with ascites Code(s): K74.60 - UNSPECIFIED CIRRHOSIS OF LIVER; R18.8 - OTHER ASCITES Status : Acute (2) SBP (spontaneous bacterial peritonitis) Code(s): K65.2 - SPONTANEOUS BACTERIAL PERITONITIS Status: Acute (3) Anemia Code(s): D64.9 - ANEMIA, UNSPECIFIED Status: Acute - Plan mri ordered -: nehrology consulted * . Review of Systems - Review of Systems Cardiovascular: negative: chest pain, palpitations, orthopnea, paroxysmal nocturnal dyspnea, edema, light headedness, other Gastrointestinal: negative: Nausea, Vomiting, Abdominal Pain, Diarrhea, Constipation, Melena, Hematochezia, Other Genitourinary: negative: Dysuria, Frequency, Incontinence, Hematuria, Retention , Other - Medications/Allergies Allergies/Adverse Reactions: Allergies Allergy/AdvReac Type Severity Reaction Status Date / Time amlodipine Allergy Severe Verified 07/07/18 23:49 Sulfa (Sulfonamide Allergy Hives Verified 07/07/18 23:49 Antibiotics) sulfamethoxazole Allergy Unverified 07/07/18 23:49 [From Bactrim] trimethoprim [From Bactrim] Allergy Unverified 07/07/18 23:49 Medications: Current Medications Acetaminophen (Tylenol) 650 mg PO Q4H PRN PRN Reason: Headache/Fever/Mild Pain (1-3) Hydrocodone Bitart/Acetaminophen (Cass 5/325) 1 tab PO Q4H PRN PRN Reason: Moderate Pain (4-6) Last Admin: 07/08/18 09:31 Dose: 1 tab Albumin Human (Albumin 25%) 25 gm IVPB Q6HR [facility] Stop: 07/12/18 18:01 Last Admin: 07/10/18 14:26 Dose: Not Given Albumin Human (Albumin 5%) 25 gm IVPB NOW [facility] Stop: 07/10/18 19:00 Albuterol/Ipratropium (Duoneb) 3 ml NEB Q6H PRN PRN Reason: SOB &/or Wheezing Allopurinol (Zyloprim) 200 mg PO DAILY [facility] Last Admin: 07/10/18 07:56 Dose: 200 mg Artificial Tears (Tears Naturale) 2 drop EA EYE PRN PRN PRN Reason: Dry Eyes Bisacodyl (Dulcolax) 10 mg PO DAILYPRN PRN PRN Reason: Constipation Bisacodyl (Dulcolax) 10 mg ME DAILYPRN PRN PRN Reason: Constipation Calcium Carbonate (Tums) 1,000 mg PO Q4H PRN PRN Reason: Heartburn or Indigestion Cholecalciferol (Vitamin D3) 1,000 units PO DAILY [facility] Last Admin: 07/10/18 07:56 Dose: 1,000 units Cyanocobalamin (Vitamin B-12) 1,000 mcg PO DAILY [facility] Last Admin: 07/10/18 07:56 Dose: 1,000 mcg Famotidine (Pepcid) 20 mg PO DAILY [facility] Last Admin: 07/10/18 07:56 Dose: 20 mg Folic Acid (Folvite) 1 mg PO DAILY [facility] Last Admin: 07/10/18 07:56 Dose: 1 mg Furosemide (Lasix) 20 mg SLOW IVP 0600,1400 [facility] Last Admin: 07/10/18 14:01 Dose: 20 mg Guaifenesin (Robitussin Sf) 200 mg PO Q4H PRN PRN Reason: Cough Heparin Sodium (Porcine) (Heparin) 5,000 units SC BID [facility] Last Admin: 07/10/18 07:57 Dose: 5,000 units Hydralazine HCl (Apresoline) 10 mg SLOW IVP Q4H PRN PRN Reason: SBP > 180 and HR < 70 Lactulose (Lactulose) 20 gm PO DAILY [facility] Last Admin: 07/10/18 07:57 Dose: 20 gm Loperamide HCl (Imodium) 2 mg PO PRN PRN PRN Reason: Diarrhea/Loose Stools Loratadine (Claritin) 10 mg PO DAILYPRN PRN PRN Reason: Sinus Symptoms Losartan Potassium (Cozaar) 100 mg PO DAILY [facility] Last Admin: 07/10/18 11:46 Dose: 100 mg Mineral Oil/White Petrolatum (Eucerin Cream) 0 gm TOP BIDPRN PRN PRN Reason: Dry Skin Ondansetron HCl (Zofran Odt) 4 mg PO Q6H PRN PRN Reason: Nausea/Vomiting Ondansetron HCl (Zofran) 4 mg IVP Q6H PRN PRN Reason: Nausea/Vomiting Saccharomyces Boulardii (Florastor) 250 mg PO DAILY [facility] Last Admin: 07/10/18 07:55 Dose: 250 mg Sodium Chloride ([place] Nasal [place] 0.65%) 0 ml EA NARE QIDPRN PRN PRN Reason: Nasal Congestion Spironolactone (Aldactone) 25 mg PO BID-[facility] Last Admin: 07/10/18 07:56 Dose: 25 mg Throat Lozenges (Cepastat Lozenges) 1 jennifer PO Q2H PRN PRN Reason: Sore Throat Venlafaxine HCl (Effexor) 100 mg PO DAILY [facility] Last Admin: 07/10/18 08:04 Dose: 100 mg
--- NOTE | 2018-07-10 17:43 | PRG ---
DATE OF SERVICE: 07/10/2018 SUBJECTIVE: Ms. Salazar is doing better today. Her weight was down from 210 on the and 194 today. She did have was sent down for paracentesis and had about 2.5 liters removed. No special stud ies were sent. Presently, she is feeling better. She states she has an appointment done at [facility] this Friday. She thinks she can do well at home at this point in time. PHYSICAL EXAMINATION: GENERAL: Patient is alert and oriented person, place and time. VITAL SIGNS: Temperature is 98, pulse is 83, blood pressure 154/77. LUNGS: Clear. HEART: Regular rhythm. ABDOMEN: Shifting dullness and fluid waves. There is no palpable hepatosplenomegaly. LABORATORY STUDIES: Sodium 139, potassium 3.5, BUN and creatinine are 27 and 1.35 today. Bilirubin 1.5, albumin 3.1, protein 5.8, globulin 2.8, AST and ALT are 29 and 14, AST was 33 this admission. M RI of the liver showed a mass, right large hepatic lobe, 7.5 x 8.2 x 11 seem to the right portal vein . He is felt to be hepatocellular carcinoma. Radiology also suboptimal MRI. ASSESSMENT: 1. Liver mass, likely a hepatoma and limitations of MRI and phase imaging described bodies in the gonzalez dy of the report, evaluation for arterial phase hypertension was limited. This was a portal venous _ ____. 2. Gastroesophageal varices, on CT and MRI. 3. Renal insufficiency, markedly improved. 4. No signs of SBP. RECOMMENDATIONS: She can go home on a 2 grams sodium diet, Lasix 20 mg, Aldactone 50 mg, may be reas onable to stop her losartan and put her on a beta jailyn. It should help her blood pressure as well as primary prophylaxis with varices. She should follow up in our office in 1 week.
--- NOTE | 2018-07-10 17:45 | PRG ---
DATE OF SERVICE: 07/10/2018 SUBJECTIVE: Ms. Salazar is a 62-year-old [place] female with known history of cirrhosis. Duri ng an ultrasound, she was found to have ? of liver mass. MRI of the abdomen was done and it showed a large right hepatic lobe involving suspicious for hepatocellular carcinoma. She also had port al hypertension and splenomegaly. We have seen this patient for an acute kidney injury on top of chronic renal failure. Currently, flori akers however, will resume this at the lower dose of 50 mg tab once a day. No other complaints , no chest pain, shortness of breath. OBJECTIVE: VITAL SIGNS: Blood pressure 154/77, heart rate 83, respiratory rate 18, temperature 98.2, pulse ox 9 6%. GENERAL: Awake, alert, comfortable, not in distress. SKIN: Adequate turgor. HEENT: She has slightly pale conjunctivae, anicteric sclerae. NECK: No neck mass, no carotid bruits, no JVD. CHEST: No deformities. LUNGS: Clear breath sounds, no wheezing, no crackles. HEART: Normal sinus rhythm. No murmur, no gallops, no rubs. ABDOMEN: Globular, soft, nontender. Positive for ascites. EXTREMITIES: No edema, no deformities. MEDICATIONS: Medications of 07/10/2018 was reviewed. LABORATORY DATA: Laboratories of 07/10/2018; white count 6.2, hemoglobin 9.5. Sodium 139, potassium 3.5, chloride 105, carbon dioxide 104, BUN 27, creatinine 1.35. ASSESSMENT AND PLAN: 1. Acute kidney injury saline - slightly higher creatinine. This may be a reflection to recent para centesis and from her diuretics and losartan. She has been started on salt poor albumin. Continue s alt poor albumin. 2. Cirrhosis/hepatocellular carcinoma? 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 Agree to discharge the patient. She will be seen in the [facility]al [facility]. Case discussed with the hospitalist.
--- NOTE | 2018-07-10 19:16 | ULT ---
ULTRASOUND GUIDED PARACENTESIS: Date: 07/10/18 PREPROCEDURE DIAGNOSIS: Ascites. POSTPROCEDURE DIAGNOSIS: Ascites. PROCEDURE: Ultrasound guided paracentesis. VP CUSTOMER SERVICE: Dr. Haile. COMPLICATIONS: None. SPECIMEN: 2600 mL of straw-colored fluid. ANESTHESIA: 5 mL of buffered 1% lidocaine. TECHNIQUE: Prior to the procedure, the risks and benefits of an ultrasound guided paracentesis were explained to the patient and she consent fully to the procedure. The patient had a large amount of ascites. The area of best access into the fluid was seen in the rig ht lower quadrant of the abdomen. This area was prepped and draped in the usual sterile fashion. Lidocaine was used to anesthetize the skin and soft tissues down towards the peritoneum. A small skin incision was made, allowing for passage of the Yueh needle and catheter. The Yueh needle and cathete r were then placed using ultrasound guidance into the fluid collection in the right lower quadrant of the abdomen. Once the needle was accessed into the peritoneal cavity, the needle was removed and the catheter was left in place. This was connected to multiple vacutainer bottles. During the drainage, the fluid stop ped draining at approximately 2600 mL liters. When attempting to roll the patient to reposition the b owel loops and fluid, the catheter accidentally was removed from the patient's abdomen. An ultrasound was performed, showing a small to moderate amount of residual fluid. It was discussed with the patie nt at the time that she received relief from the ascites from the 2600 mL removed, and at this time, it was decided that an additional stick into the residual fluid is not warranted as the patient is as ymptomatic. IMPRESSION: Status post successful ultrasound guided paracentesis. POS: [facility]
[2018-07-10 19:34] VITALS: BP 118/82; TEMP 98.1
--- NOTE | 2018-07-11 00:34 | DIS ---
DATE OF ADMISSION: 07/07/2018 DATE OF DISCHARGE: 07/10/2018 DISCHARGE DIAGNOSES: 1. Cirrhosis of the liver with ascites. 2. Spontaneous bacterial peritonitis. 3. Anemia. 4. Hepatocellular carcinoma. HOSPITAL COURSE: The patient is a very pleasant 62-year-old female who initially presented to the [facility] with complaints of significant abdominal bloating and abdominal distention. She had an ultras ound of her abdomen, which was concerning for possible hepatocellular carcinoma since she had a large solid mass involving the right hepatic lobe. She did undergo a triphasic MRI of the abdomen, which indicated a large hepatic lobe mass involving segment 5, 6, 7 and 8, highly suspicious for hepatocell ular carcinoma with portal vein invasion also had portal hypertension, gastric and esophageal varices . The patient at this time was discharged, was seen by GI and also was seen by Nephrology. She did have some mild BALTAZAR. She will be discharged home. She will follow up with GI clinic on Friday and al [facility] HOME MEDICATIONS: Lasix 20 mg daily, Cozaar 50 mg which was changed from 100 to 50 mg daily, spirono lactone 25 b.i.d., venlafaxine 100 mg daily, allopurinol 20 mg daily, and vitamin D3 one cap daily. PHYSICAL EXAMINATION: VITAL SIGNS: Temperature 98.2, pulse 83, respirations 18, sats 96% on room air, blood pressure 154/7 7. GENERAL: She is awake, alert, oriented x2, does not appear in any distress. CARDIOVASCULAR: S1, S2 present. No murmurs, rubs or gallops. ABDOMEN: Mild distention. Bowel sounds are present x2. EXTREMITIES: No edema. She did have ascites fluid that indicate some haziness; however, WBC is only 55 and segs only 3. She was initially put on antibiotics, but then her antibiotics were discontinue d. Again, she will follow up with primary and also with GI as an outpatient. She told she did receive albumin and she did have paracentesis on 07/10/2018 and on Friday, she had 2 liters removed.
--- NOTE | 2018-07-11 11:59 | EKG ---
Test Reason : SEPSIS ALERT Blood Pressure : / mmHG Vent. Rate : 116 BPM Atrial Rate : 092 BPM P-R Int : 122 ms QRS Dur : 074 ms QT Int : 380 ms P-R-T Axes : 007 002 094 degrees QTc Int : 528 ms Sinus rhythm with Premature supraventricular complexes and Fusion complexes Low voltage QRS Possible Lateral infarct , age undetermined Inferior infarct , age undetermined Abnormal ECG Confirmed by ANAM ULLOA ([id number]), assignment editor FAINA SCHAFER ([id number]) on 07/11/2018 11:59:25 AM Referred By: BRICE Confirmed By:ANAM ULLOA
== END 2018-07-10 20:00 | disposition home or self-care (01) | DRG 432 ==
LOC: ERS 18:46 → T4-B 22:15
PROVIDERS: ADMIT Internal Medicine; ATTEND Internal Medicine
PROC: 0W9G3ZZ Drainage of Peritoneal Cavity, Percutaneous Approach (ICD-10-PCS; principal; 2018-07-10)
DX: K74.69 Other cirrhosis of liver (principal); K65.2 Spontaneous bacterial peritonitis; R18.8 Other ascites; N17.9 Acute kidney failure, unspecified; C22.8 Malignant neoplasm of liver, primary, unspecified as to type; C22.0 Liver cell carcinoma; I10 Essential (primary) hypertension; D64.9 Anemia, unspecified; M10.9 Gout, unspecified
CPT/HCPCS: 36415; 36416; 49083; 70450; 71045; 74183; 76705; 80053; 80061; 80074; 81003; 81015; 82042; 82105; 82140; 82553; 82565; 83605; 83615; 83880; 84157; 84484; 85025; 85060; 85610; 85730; 87040; 87070; 87086; 87205; 88112; 88305; 89051; 93005; 93306; 96365; J0696; J1644; J1650; J1940; J1956; J2001; J2185; J7050; P9045; P9047